=== PATIENT | female | born 1945 | race Caucasian/White ===

== ENCOUNTER 2017-06-08 16:05 | Emergency (ER) | payer OTHER ==
[2017-06-08 16:24] VITALS: BP 136/79; PULSE 100; TEMP 98.6; BMI 22.8
[2017-06-08] MEDS ORDERED: SULFAMETHOXAZOLE/TRIMETHOPRIM 800MG/160MG D.S. TABLET PO ONE (16:49)
[2017-06-08] MEDS ORDERED: SULFAMETHOXAZOLE/TRIMETHOPRIM 800MG/160MG D.S. TABLET ONE (16:51)
--- NOTE | 2017-06-08 16:52 | PDOC ---
History of Present Illness - General History Source: Patient Exam Limitations: No Limitations <Olu Crum - Last Filed: 06/08/17 16:52> - History of Present Illness Initial Comments: 06/08/17 16:59 The patient is a 72 year old female, with a significant past medical history of DCIS s/p lump and radiation, hld, migraines, who presents to the emergency department with pain, redness, and swelling to her right wrist starting last night. She reports having her wrist evaluated at her PMD and urgent care, however, was referred to the ED for concern of septic joint or gout. She reports her pain was unbearable yesterday, radiating to her forearm. She reports noticing redness to the dorsum of her right hand extending to her mid- forearm region very late last night, however, reports the redness looks less today. She also states her pain has decreased today from yesterday. She reports taking 1000 mg of extra strength Tylenol with relief of her pain. She reports her pain is 6/10 at this time. She also reports using voltaren gel on her right wrist and hand which also alleviated her pain. She is able to range her wrist joint and fingers without reproducing pain. She denies pain to her fingers or elbows. She denies chest pain, shortness of breath, headache and dizziness. She denies fever, chills, nausea, vomit, diarrhea and constipation. She denies dysuria, frequency, urgency and hematuria. Allergies: NKDA Social history: Pt denies tobacco use. Denies alcohol consumption. <Leslie Wagoner - Last Filed: 06/08/17 17:03> - General Chief Complaint: Pain Stated Complaint: RIGHT WRIST PAIN & SWELLING Time Seen by Provider: 06/08/17 16:11 Past History - Past Medical History Hypercholesterolemia: Yes Other medical history: MIGRAINE - Suicide/Smoking/Psychosocial Hx Smoking History: Never smoked Hx Alcohol Use: No Drug/Substance Use Hx: No Substance Use Type: None <Olu Crum - Last Filed: 06/08/17 16:52> <Leslie Wagoner - Last Filed: 06/08/17 17:03> - Past Medical History Allergies/Adverse Reactions: Allergies Allergy/AdvReac Type Severity Reaction Status Date / Time amoxicillin Allergy Mild Itching Verified 06/08/17 16:10 Home Medications: Ambulatory Orders Alprazolam [Xanax] 0.5 mg PO DAILY PRN 06/08/17 Atorvastatin Calcium [Lipitor] 10 mg PO HS 06/08/17 Cetirizine HCl [Zyrtec -] 10 mg PO HS 06/08/17 Sulfamethoxazole/Trimethoprim [Bactrim Ds -] 1 tab PO BID #14 tablet 06/08/17 Sumatriptan Succinate [Imitrex] 25 mg PO PRN PRN 06/08/17 Review of Systems - Review of Systems Able to Perform ROS?: Yes Comments:: 06/08/17 17:00 GENERAL/CONSTITUTIONAL: No fever or chills. No weakness. HEAD, EYES, EARS, NOSE AND THROAT: No change in vision. No ear pain or discharge. No sore throat. CARDIOVASCULAR: No chest pain or shortness of breath. RESPIRATORY: No cough, wheezing, or hemoptysis. GASTROINTESTINAL: No nausea, vomiting, diarrhea or constipation. GENITOURINARY: No dysuria, frequency, or change in urination. MUSCULOSKELETAL: (+) right wrist pain, erythema, and swelling. No neck or back pain. SKIN: No rash NEUROLOGIC: No headache, vertigo, loss of consciousness, or change in strength/ sensation. ENDOCRINE: No increased thirst. No abnormal weight change. HEMATOLOGIC/LYMPHATIC: No anemia, easy bleeding, or history of blood clots. ALLERGIC/IMMUNOLOGIC: No hives or skin allergy. <Leslie Wagoner - Last Filed: 06/08/17 17:03> *Physical Exam - Vital Signs Last Vital Signs Temp Pulse Resp BP Pulse Ox 98.6 F 100 H 15 136/79 96 06/08/17 16:09 06/08/17 16:09 06/08/17 16:09 06/08/17 16:09 06/08/17 16:09 <Olu Crum - Last Filed: 06/08/17 16:52> - Vital Signs Last Vital Signs Temp Pulse Resp BP Pulse Ox 98.6 F 100 H 15 136/79 96 06/08/17 16:09 06/08/17 16:09 06/08/17 16:09 06/08/17 16:09 06/08/17 16:09 - Physical Exam Comments: 06/08/17 17:01 GENERAL: Awake, alert, and fully oriented, in no acute distress HEAD: No signs of trauma EYES: PERRLA, EOMI, sclera anicteric, conjunctiva clear ENT: Auricles normal inspection, hearing grossly normal, nares patent, oropharynx clear without exudates. Moist mucosa NECK: Normal ROM, supple, no lymphadenopathy, JVD, or masses LUNGS: Breath sounds equal, clear to auscultation bilaterally. No wheezes, and no crackles HEART: Regular rate and rhythm, normal S1 and S2, no murmurs, rubs or gallops ABDOMEN: Soft, nontender, normoactive bowel sounds. No guarding, no rebound. No masses EXTREMITIES: (+) right wrist erythema without fluctuance or induration over dorsal surface extending to proximal right forearm, full flexion and extension. 2+ distal pulses. Tender to palpation. Normal range of motion, No clubbing or cyanosis. No cords NEUROLOGICAL: Cranial nerves II-XII intact. Normal speech, normal gait. Sensation intact in upper and lower extremities. 5/5 motor strength in upper and lower extremities. No pronator drift. Finger to nose intact. Rapid alternations intact. SKIN: Warm, Dry, normal turgor, no rashes or lesions noted. <Leslie Wagoner - Last Filed: 06/08/17 17:03> ED Treatment Course - Medications Given in the ED: ED Medications Discontinued Medications Generic Name Dose Route Start Last Admin Trade Name Freq PRN Reason Stop Dose Admin Trimethoprim/Sulfamethoxazole 1 each 06/08/17 16:49 06/08/17 16:54 Bactrim Ds - PO 06/08/17 16:50 1 each ONCE ONE Administration <Leslie Wagoner - Last Filed: 06/08/17 17:03> Medical Decision Making - Medical Decision Making 06/08/17 16:53 A portion of this note was documented by scribe services under my direction. I have reviewed the details of the note, within reason, and agree with the documentation with the following case summary and management plan written by me. Patient treated in the ED. Nursing notes are reviewed and incorporated into the medical decision-making. Vital signs reviewed. Peripheral IV access obtained by the nurse, laboratory studies are drawn and sent, reviewed and interpreted by myself. Vital Signs Temp Pulse Resp BP Pulse Ox 98.6 F 100 H 15 136/79 96 06/08/17 16:09 06/08/17 16:09 06/08/17 16:09 06/08/17 16:09 06/08/17 16:09 72-year-old female with history of DCIS s/p lumpectomy and radiation p/w atraumatic R hand/wrist pain since yesterday. Pt denies injuries. Noted today that the redness over the right skin. Denies fevers. Pt went to a covering physician for her PMD and advised the patient to be sent in for r/o gout vs. septic joint. Patient has no history of gout. The physical exam findings are consistent with cellulitis. At this time however, I have low suspicion for septic joint. Even if there was fluid to aspirate (which there is none that I can palpate), it is contraindicated to tap the joint 2/2 overlying erythema. The patient has allergies to amoxicillin and possibly to penicillin. Will discharge with bactrim. I instructed the patient that she should watch her skin. If the skin conditions worsen despite the antibiotics after 48 to 72 hours, she should call her doctor or return to the ER. I discussed the physical exam findings, ancillary test results and final diagnoses with the patient. I answered all of the patient's questions. The patient was satisfied with the care received and felt comfortable with the discharge plan and treatment plan. The patient will call their primary care physician within 24 hours to arrange follow-up and will return to the Emergency Department with any new, persistant or worsening symptoms. <Olu Crum - Last Filed: 06/08/17 16:52> *DC/Admit/Observation/Transfer - Discharge Dispostion Admit: No <Olu Crum - Last Filed: 06/08/17 16:52> - Attestations Scribe Attestion: 06/08/17 17:02 Documentation prepared by Leslie Wagoner, acting as medical sales for Olu Crum MD, <Leslie Wagoner - Last Filed: 06/08/17 17:03> Diagnosis at time of Disposition: Cellulitis Qualifiers: Site of cellulitis: extremity Site of cellulitis of extremity: upper extremity Laterality: right Qualified Code(s): L03.113 - Cellulitis of right upper limb - Discharge Dispostion Disposition: HOME Condition at time of disposition: Good - Prescriptions Prescriptions: Sulfamethoxazole/Trimethoprim [Bactrim Ds -] 1 tab PO BID #14 tablet - Referrals Referrals: Davon Noe [Primary Care Provider] - - Patient Instructions Printed Discharge Instructions: DI for Cellulitis -- Adult Additional Instructions: Take 1 tablet of bactrim every 12 hours for the next 7 days. Take 650 mg tylenol every 4 hours as needed for pain. Please follow up with your doctor. Call to schedule an appointment, preferably this week. If you start noticing over the next 48 to 72 hours that the redness on your skin is worse than before despite taking your antibiotics, please call your doctor or return to the ER for further evaluation.
== END 2017-06-08 17:00 | disposition home or self-care (01) ==
LOC: FER 16:05
DX: L03.113 Cellulitis of right upper limb (principal); D05.10 Intraductal carcinoma in situ of unspecified breast; E78.5 Hyperlipidemia, unspecified
CPT/HCPCS: 99282-25